=== PATIENT | male | born 1985 | race Two or more races ===

== ENCOUNTER → 2021-01-09 | Emergency (ER) | payer OTHER ==
[~2021-01-09] VITALS: Ht 182.9 cm; Wt 90.7 kg
[~2021-01-09] MED LIST: CLIN150C16 PO
[2021-01-09 02:04] VITALS: BP 139/67
== END | disposition home or self-care (01) ==
LOC: ER 01:35
DX: L03.113 Cellulitis of right upper limb (principal); Z79.899 Other long term (current) drug therapy; Z02.89 Encounter for other administrative examinations
CPT/HCPCS: 99283; A6403